=== PATIENT | female | born 1985 | race Caucasian/White ===

== ENCOUNTER → 2021-02-22 08:34 | Outpatient (BNVA) | payer OTHER, SELFPAY | PROVIDERS: PCP Family Medicine ==

== ENCOUNTER 2021-03-02 01:33 | Emergency (ER) | payer OTHER, SELFPAY ==
[2021-03-02 01:49] VITALS: BP 114/64; PULSE 98; RESP 18; TEMP 36.8; O2SAT 100; BMI 20.5
--- NOTE | 2021-03-02 02:51 | ED.GENADULT ---
HPI - General Adult General Chief complaint: Skin/Abscess/Foreign Body Stated complaint: Forehead lac Time Seen by Provider: 03/02/21 02:49 Source: patient Mode of arrival: ambulatory Limitations: no limitations History of Present Illness HPI narrative: 35-year-old female history of extensive acne on the face, started with a pimple on the face over her nose in between her eyes patient started picking at the area causing the spread of the infection on the face and the right upper eyelid, no fluctuation, no double vision, no pain with movement of the eye. No fever, no chills. Related Data Home Medications Medication Instructions Recorded Confirmed oxybutynin chloride 5 mg tablet 5 mg PO DAILY 02/22/21 Previous Rx's Medication Instructions Recorded doxycycline hyclate 100 mg capsule 100 mg PO BID #14 cap 03/02/21 Allergies Allergy/AdvReac Type Severity Reaction Status Date / Time No Known Allergies Allergy Verified 02/22/21 08:39 [No Known Allergies*] N.K.D.A. Allergy Unknown Unknown Uncoded 02/22/21 08:39 Review of Systems Review of Systems: All other systems are reviewed and are negative Constitutional: Reports as per HPI and Reports no additional constitutional complaints Eyes: Reports as per HPI and Reports no additional eye complaints Reports system reviewed and no additional complaints, except as documented Cardiovascular: Reports as per HPI and Reports no additional cardiovascular complaints Respiratory: Reports as per HPI and Reports no additional respiratory complaints Gastrointestinal: Reports as per HPI and Reports no additional gastrointestinal complaints Genitourinary: Reports no additional female genitourinary complaints Musculoskeletal: Reports no additional musculoskeletal complaints Skin/Breast: Reports system reviewed and no additional complaints, except as docu Psychiatric: Reports no additional psychiatric complaints Endocrine: Reports no additional endocrine complaints Hematologic/Lymphatic: Reports no additional hematologic/lymphatic complaints Allergic/Immunologic: Reports no additional allergic/immunologic complaints Reports system reviewed and no additional complaints, except as documented and Reports Abnormal speech present [facility] Past Medical History Medical History Acute cystitis without hematuria Diverticulitis H/O urinary frequency Hirsutism Interstitial cystitis Pancreatic cyst Surgical History History of surgery Social History Social History Advance Directives: No Advance Directives Information Provided: No Physical Exam Vital Signs: Vital Signs: Last Vital Signs Temp 98.3 F 03/02/21 01:49 Pulse 98 03/02/21 01:49 Resp 18 03/02/21 01:49 BP 114/64 03/02/21 01:49 Pulse Ox 100 03/02/21 01:49 Body Mass Index 20.5 vital signs have been reviewed as appeared to be correct. Blood pressure normal. Heart rate normal. Respiration rate normal. Temperature normal. Oxygen saturation normal. Appearance: Alert. Oriented X3. No acute distress. Head: Normal external exam. Normocephalic. Atraumatic. No Pastor signs noted. No raccoon eyes noted . Face: Area 3 x 4 cm of redness, hotness, tenderness at the bridge of the nose affecting the right upper eyelid, no fluctuation, no extraocular muscle tenderness with eye movement. Eyes: PERRLA. EOMI. Conjunctiva and sclera normal. Eyelids normal. ENT: TM's Normal. Pharynx normal. Uvula midline. Moist mucous membranes. No trismus noted. No drooling noted. No muffled voice noted. Neck: Normal inspection. Neck supple. FROM. No adenopathy. Thyroid Normal. No meningeal signs. No neck mass noted. CVS: Normal heart rate and rhythm. Heart sound normal. No murmurs noted. Pulses normal throughout. Respiratory: No respiratory distress. Painless inspiration. Breath sounds normal. No wheezes/rales/rhonchi noted. Chest nontender. No accessory muscle usage noted or decreased air movement noted. Abdomen: Soft and nontender. Bowel sounds normal in all 4 quadrants. No distention noted. No organomegaly noted. No visible injury noted. Back: No CVA tenderness. Full range of motion noted. Skin: Skin warm and dry. Normal skin color. Normal skin turgor. No rashes/lesions/lacerations noted. Extremities: No lower extremity edema. Extremities exhibit normal range of motion. Extremities nontender. Neuro: Oriented X 3. Cranial nerve exam: II-XII are grossly intact No motor deficit. No sensory deficit. Reflexes normal. Course Course Course Narrative: Assessment and plan. 35-year-old female came in with facial cellulitis after picking on a pimple on the face. affecting right upper eyelid, physical exam consistent with superficial infection with no periorbital cellulitis. Will start the patient on doxycycline. Discharge Plan Discharge Clinical Impression: Cellulitis Qualifiers: Site of cellulitis: face Qualified Code(s): L03.211 - Cellulitis of face Patient Disposition: Home, Self-Care Instructions: Cellulitis (ED) Additional Instructions: return to the emergency department in 2 days for wound check. Prescriptions: New doxycycline hyclate 100 mg capsule 100 mg PO BID Qty: 14 RF: 0 Referrals: Kelly Caraballo PA [Primary Care Provider] - 2 days
== END 2021-03-02 03:11 | disposition home or self-care (01) ==
PROVIDERS: Emergency Provider Emergency Medicine; PCP Physician Assistant
DX: L03.211 Cellulitis of face (principal)
CPT/HCPCS: 99283

== ENCOUNTER → 2022-04-14 14:09 | Outpatient (BNVA) | payer OTHER, SELFPAY | PROVIDERS: PCP Physician Assistant; Visit Provider Urology | DX: N30.10 Interstitial cystitis (chronic) without hematuria (principal) ==

== ENCOUNTER 2023-05-01 15:20 | Outpatient (AMB) | payer OTHER, SELFPAY ==
--- NOTE | 2023-05-01 15:26 | A.OFFVIS_ITS ---
Intake Intake Visit Reasons: 1yr follow up Intake Note: Patient presents today for her annual follow up Cystitis: Medications: none Blood thinners: none PVR : 50 Patient stated she wakes up about 5 times at night to urinate,and also said she is avoiding food that irritates the bladder. , Speech Language Therapist Required: No Accompanied by: Self / Same As Patient Allergies No Known Allergies Allergy (Unverified 05/01/23 15:27) N.K.D.A. Allergy (Unknown, Uncoded 05/01/23 15:27) Unknown Medication List - Last Reconciled 05/01/23 by Soraida Shine MD doxycycline hyclate 100 mg PO BID norgestrel-ethinyl estradiol 0.3-30 mg-mcg (Low-Ogestrel (28)) 1 tab PO DAILY oxybutynin chloride 5 mg PO BEDTIME HPI HPI Comments History of Present Illness Details Caio is a 38-year-old female who is followed by urology for diagnosis of interstitial cystitis. She was on elmiron in the past, stopped 2018 when she got She was doing well off elmiron - but is having increased urgency especially at night. I have reviewed IC diet. I will try an anticholinergic at bedtime. Evaluation today: Urinalysis leukocytes trace, blood negative 05/01/23--Plan - IC I have reviewed IC diet and given her a pamphlet Cont IC diet oxybutynin 5 mg at bedtime fu 3-4 months [facility] Medical History Interstitial cystitis Hirsutism Acute cystitis without hematuria H/O urinary frequency Pancreatic cyst Diverticulitis Surgical History History of surgery Review of Systems Const All systems reviewed & are unremarkable except as noted in HPI and below Reports no additional complaints Eyes Reports no additional complaints ENT Reports no additional complaints Card Denies dyspnea Resp Denies cough and Denies dyspnea GI Reports no additional complaints Reports no additional complaints Musc Reports no additional complaints Skin/Breast Denies rash and Denies unusual bruising Neuro Reports no additional complaints Psych Reports no additional complaints Endo Reports no additional complaints Dk/Lymph Reports no additional complaints Aller/Immun Reports no additional complaints Office Procedures Post Void Residual Post Residual Void Post Void Residual (PVR): 50 [id number]-[id number] Void Residual by ultrasound Results AMB Urinalysis, Automated UA Leukoctes 15 Maliha/uL Last Edit by [facility] on 05/01/23 15:49 UA Nitrite Negative Last Edit by [facility], [facility] on 05/01/23 15: 49 UA Urobilinogen 0.2 mg/dL Last Edit by [facility], [facility] on 4 15:49 UA Protein 30 mg/dL Last Edit by [facility], [facility] on 05/01/23 15:4 9 UA pH 6.5 Last Edit by [facility], [facility] on 05/01/23 15:49 UA Blood 0 Albino/uL Last Edit by [facility], [facility] on 05/01/23 15:49 UA Specific [place] 1.025 Last Edit by [facility], [facility] on 15:49 UA Ketone Last Edit by [facility], [facility] on 05/01/23 15:49 UA Bilirubin 0 mg/dL Last Edit by [facility], [facility] on 05/01/23 15: 49 UA Glucose 0 mg/dL Last Edit by [facility] on 05/01/23 15:49 Results Reviewed Results Reviewed: Laboratory Last Values Urine pH (Auto) 6.5 05/01/23 15:47 Specific [place] (Auto) 1.025 05/01/23 15:47 Urine Protein (Auto) 30 mg/dL 05/01/23 15:47 Glucose (UA)(Auto) 0 mg/dL 05/01/23 15:47 Urine Blood (Auto) 0 Albino/uL 05/01/23 15:47 Urine Nitrite (Auto) Negative 05/01/23 15:47 Urine Bilirubin (Auto) 0 mg/dL 05/01/23 15:47 Urine Urobilinogen (Auto) 0.2 mg/dL 05/01/23 15:47 Leukocyte Esterase (Auto) 15 Maliha/uL 05/01/23 15:47 Assessment & Plan Assessment & Plan (1) Interstitial cystitis: Code(s): N30.10 - Interstitial cystitis (chronic) without hematuria (2) Nocturia: Code(s): R35.1 - Nocturia Plan IC I have reviewed IC diet and given her a pamphlet Cont IC diet oxybutynin 5 mg at bedtime fu 3-4 months Orders: Orders AMB Urinalysis Automated 05/01/23 R33.9 - Retention of urine, unspecified AMB Post Void Residual by ultrasound 05/01/23 R33.9 - Retention of urine, unspecified Urine Culture 05/01/23 N39.0 - Urinary tract infection, site not specified, N30.10 - Interstitial cystitis (chronic) without hematuria Medications: New oxybutynin chloride take with food 5 mg PO BEDTIME 90 tabs 2RF Coding Level of Care Code Est Pt Level 4 (85641) Diagnoses Interstitial cystitis N30.10 Nocturia R35.1 CPT Codes Post Residual Void - PVR CPT Code: 08133-Rzfj Void Residual by ultrasound ([id number])
== END 2023-05-01 16:08 | disposition home or self-care (01) ==
LOC: HO.HUSH 15:20
PROVIDERS: PCP Physician Assistant; Visit Provider Urology
DX: N30.10 Interstitial cystitis (chronic) without hematuria (principal); R35.1 Nocturia
CPT/HCPCS: 99214

== ENCOUNTER 2023-05-01 15:20 | Outpatient (REF) | payer OTHER, SELFPAY | END 2023-05-01 15:21 | disposition home or self-care (01) | LOC: HO.LAB 15:20 | PROVIDERS: PCP Physician Assistant; Visit Provider Urology | DX: R33.9 Retention of urine, unspecified (principal); N30.10 Interstitial cystitis (chronic) without hematuria; R35.1 Nocturia | CPT/HCPCS: 51798; 81003; 87086 ==

== ENCOUNTER 2024-07-22 15:09 | Outpatient (AMB) | payer OTHER, SELFPAY ==
--- NOTE | 2024-07-22 15:15 | A.OFFVIS_ITS ---
Intake Visit Reasons: 1yr Followup Intake Note: Patient presents today for her annual follow up on: Interstitial Cystitis Medications: none Blood thinners: none PVR : 0ml's Caustic Pump Operator Required: No Accompanied by: Self / Same As Patient Allergies No Known Allergies Allergy (Unverified 07/22/24 16:12) N.K.D.A. Allergy (Unknown, Uncoded 07/22/24 16:12) Unknown Medication List - Last Reconciled 07/22/24 by JORGE LassiterP- norgestrel-ethinyl estradiol 0.3-30 mg-mcg (Low-Ogestrel (28)) 1 tab PO DAILY HPI Comments Details: Caio is a very pleasant 39-year-old female patient of . She has a past medical history of pancreatic cyst, diverticulitis, and interstitial cystitis. She presents to the office today for follow-up of her interstitial cystitis. In discussion with the patient today she reports to be doing and feeling well. She does report noting episodes of urinary urgency and frequency as well as nocturia however feels she is managing these symptoms well independently. She discusses that although recommendations for initiation of oxybutynin was prescribed during last office visit she did not feel symptoms were on manageable independently and therefore never started the medication. In office urinalysis results reviewed with the patient today. She continues to follow an interstitial cystitis diet and is aware of her triggers. She otherwise denies hematuria, dysuria, foul smelling urine, changes to urinary stream, flank pain, fever, and or chills. She is happy with her current voiding parameters. We discussed at length potential causes of interstitial cystitis as well as further treatment options and risks and benefits of these treatment options. She otherwise offers no other issues or concerns at this time. [facility] Medical History Interstitial cystitis Hirsutism Acute cystitis without hematuria H/O urinary frequency Pancreatic cyst Diverticulitis Surgical History History of surgery Review of Systems Const All systems reviewed & are unremarkable except as noted in HPI and below Physical Exam Const General: cooperative, healthy appearing, comfortable, no acute distress, well developed, alert and awake Orientation/consciousness: patient oriented x3 Limitations: no limitations HEENT Head: Yes normal to inspection, Yes normocephalic and Yes atraumatic Ears: hearing grossly normal bilaterally Eyes General: appearance normal, both eyes and all related structures Neck Neck: Yes normal visual inspection and Yes trachea midline Chest Chest palpation & inspection: normal inspection of the chest Resp Effort & Inspection: normal respiratory effort and able to speak in complete sentences Cardio Rate: regular rate GI Inspection: Yes normal to inspection General: Yes no CVA tenderness Back/Spine/Pelvis Back: no CVA tenderness Skin General skin exam: no rashes or lesions noted Neuro General: patient oriented x3 Extrem General: Yes normal to inspection Psych Appearance: grossly normal and well kempt Mental Status: mental status grossly normal Speech and movement: Normal speech and movement present and Clear speech present Affect: normal affect Attitude: cooperative Thought process: Normal thought process present Thought content: Normal thought content present Insight: Fair insight present (Psych) Judgement: Fair judgement present (Psych) Office Procedures Post Void Residual Post Residual Void Post Void Residual (PVR): 0 19308-Pipj Void Residual by ultrasound Results AMB Urinalysis, Automated UA Leukoctes 0 Maliha/uL Last Edit by Flypeeps Harika on 07/22/24 16:34 UA Nitrite Last Edit by Alberto Shabazz on 07/22/24 16:34 UA Urobilinogen 0.2 mg/dL Last Edit by Mahindra REVAcharito Shabazz on 07/22/24 16:34 UA Protein 30 mg/dL Last Edit by Mahindra REVAcharito Shabazz on 07/22/24 16:34 UA pH 6.0 Last Edit by АлександрMeet My Friendscharito Shabazz on 07/22/24 16:34 UA Blood 0 Albino/uL Last Edit by Mahindra REVAcharito Shabazz on 07/22/24 16:34 UA Specific [place] 1.025 Last Edit by Flypeeps Harika on 07/22/24 16:34 UA Ketone Positive Last Edit by Mahindra REVAcharito Shabazz on 07/22/24 16:34 UA Bilirubin 0 mg/dL Last Edit by Alberto Shabazz on 07/22/24 16:34 UA Glucose 0 mg/dL Last Edit by Alberto Shabazz on 07/22/24 16:34 Results Reviewed Results Reviewed: Laboratory Last Values Urine pH (Auto) 6.0 07/22/24 16:33 Specific [place] (Auto) 1.025 07/22/24 16:33 Urine Protein (Auto) 30 mg/dL 07/22/24 16:33 Glucose (UA)(Auto) 0 mg/dL 07/22/24 16:33 Urine Ketones (Auto) Positive 07/22/24 16:33 Urine Blood (Auto) 0 Albino/uL 07/22/24 16:33 Urine Bilirubin (Auto) 0 mg/dL 07/22/24 16:33 Urine Urobilinogen (Auto) 0.2 mg/dL 07/22/24 16:33 Leukocyte Esterase (Auto) 0 Maliha/uL 07/22/24 16:33 Assessment & Plan Assessment & Plan (1) Nocturia: Code(s): R35.1 - Nocturia Category: Medical (2) Interstitial cystitis: Code(s): N30.10 - Interstitial cystitis (chronic) without hematuria Category: Medical Plan In office urinalysis results reviewed with the patient today; as noted above. PVR 50 mL Patient currently denies any bothersome urinary issues or concerns. She reports be happy with current voiding parameters. Will continue with surveillance monitoring. We discussed potential causes of interstitial cystitis as well as further treatment options and risks and benefits of these treatment options. Continue to follow IC diet. Follow-up in 1 year with PVR; or sooner with any issues, concerns, and or quest ions. Orders: Orders AMB Urinalysis Automated Today Z13.9 - Encounter for screening, unspecified AMB Post Void Residual by ultrasound Today N30.10 - Interstitial cystitis (chronic) without hematuria Medications: Discontinued doxycycline hyclate Discontinued Reason: Patient no longer taking 100 mg PO BID 14 caps 0RF oxybutynin chloride take with food Discontinued Reason: Patient no longer taking 5 mg PO BEDTIME 90 tabs 2RF Patient Instructions: The patient had an opportunity to ask questions regarding the treatment plan. All questions were answered. Physical exam, labs, and imaging were discussed and reviewed in detail. As well as risks, benefits, and discussion of treatment choices. No major barriers to understanding were identified. The patient expressed understanding and agreement with the above treatment plan. The patient was made aware they should contact our office by phone for worsening of their current condition, the appearance of new symptoms, or with any questions or concerns. Compliance is encouraged with any medications and follow up testing that is ordered. It is a privilege to be allowed the opportunity to participate in? your urological care.? Again, if you have any questions or concerns If you have any questions or concerns please do not hesitate to contact me. The office is [phone]. This note is constructed using voice recognition software. While every effort has been made to ensure accuracy stroke coordinator errors may have been included. Yours sincerely, TAHMINA Lassiter Coding Level of Care Code Est Pt Level 3 (76540) Complex EM visit Add On G2211 Diagnoses Nocturia R35.1 Interstitial cystitis N30.10 CPT Codes Post Residual Void - PVR CPT Code: 93243-Axgl Void Residual by ultrasound ([id number])
--- OUTSIDE RECORDS SUMMARY | 2024-07-22 17:42 | XMS_ITS | Data Portability ---
Author Organization [facility], [address] Address [address] [place] [address] Assessment Encounter Date Assessment Date Assessment LastModified by Organization Details LastModified Time 10/27/2017 10/27/2017 Patient presents for a cosmetic consult. I had done a scar revision of a round scar on her nasal dorsum several years agon and she now has another scar left to it which is the result of scratching a pimple . 6mm scar mid nasal dorsum. Dwp scar revision surgery Cost $400. [email or web address] Not available 10/31/2017 10:06:43 Plan of Treatment Reminders Order Date Submit Date Provider Last Modified By Organization Details Last Modified Time Details Appointments None record ed. Lab None record ed. Referral None record ed. Procedures None record ed. Surgeries None record ed. Imaging None record ed. Medication Orders None record ed. Patient TargetsNo targets recorded. Patient InstructionsNo instructions recorded. Reason for Referral None Reported. Medical Equipment None Reported. Vitals None Recorded Social History None recorded. Functional Status None recorded. Mental Status None recorded. Family History Nothing Reported. Medical History No medical history recorded. Gynecological HistoryNo gynecological history recorded. Obstetrics History GPAL:G 0 P 0 0 0 0 Past Encounters Encounter ID Performer Location Encounter Start Date Encounter Closed Date Diagnosis/Indication Diagnosis SNOMED-CT Code Diagnosis ICD10 Code Diagnosis Note [id number] MD [facility] Ramirez [address] [place] [address] 10/27/2017 09:51:29 10/27/2017 10:40:50 Optional surgery [id number] Z41.9 Health Concerns Section Related Observation LastModified by Organization Detai ls LastModified Time None Recorded Concern Status LastModified by Organization Details LastModified Time None Recorded Advance Directives Directive None Recorded Payers None recorded. Notes Date Note Type Note Provider Name and Address Organization Details Recorded Time 10/27/2017 text/html The patient presents for a cosmetic treatment. Alonzo Cool MD [address] [facility],[address], [place], [address], [facility] 10/31/2017 10:06:58 OBGyn Episode No OBEpisode recorded.
== END 2024-07-22 15:54 | disposition home or self-care (01) ==
LOC: HO.HUSH 15:09
PROVIDERS: PCP Physician Assistant; Visit Provider Nurse Practitioner Family
DX: R35.1 Nocturia (principal); N30.10 Interstitial cystitis (chronic) without hematuria; Z13.9 Encounter for screening, unspecified
CPT/HCPCS: 99213

== ENCOUNTER → 2024-07-22 15:09 | Outpatient (BNVA) | payer OTHER, SELFPAY | PROVIDERS: PCP Physician Assistant; Visit Provider Nurse Practitioner Family | DX: R35.1 Nocturia (principal); N30.10 Interstitial cystitis (chronic) without hematuria | CPT/HCPCS: 51798; 81003 ==

== ENCOUNTER 2024-08-12 15:11 | Outpatient (AMB) | payer OTHER, SELFPAY ==
[2024-08-12 15:15] VITALS: BP 130/78; PULSE 72; O2SAT 99; BMI 21.5
--- NOTE | 2024-08-12 15:15 | MHC.OFFVIS ---
Vital Signs 08/12/24 15:15 Height 5 ft 4 in Weight 125 lb BMI 21.5 BP 130/78 Blood Pressure Location Rt brachial Position Sitting Pulse 72 Pulse Source Pulse Oximeter Pulse Oximetry (%) 99 Oxygen Delivery Method Room Air Intake Visit Reasons: Nausea Intake Note: NEW PATIENT for initial eval of nausea. Prior hx of colo/egd? N Chief Complaint; Pt reports her sx are well managed currently. Previous hx of pancreatic cyst and diverticulitis in 2018 when she saw [facility]. Pt has not seen GI since and has been managing with diet and lifestyle changes. Pt has occasional episodes of GI upset and abd pain but is typically OK without treatment. Pt reports she is overdue for 5 year recall for pancreatic cyst check (MRI) per July previously. PCP also recommended this. Design Drafter Required: No Accompanied by: Self / Same As Patient Allergies No Known Allergies Allergy (Unverified 08/12/24 15:20) HPI HPI Nausea: Details: 39-year-old female with past medical history of interstitial cystitis, pancreatic cyst, diverticulitis is here to they for initial consultation. Diagnosed with diverticulitis in 2018. Patient was hospitalized for 4 days. During that time patient had CT scan that found pancreatic cyst. Patient has since then been following up with Bella Harris last visit was in 2019. Patient was diagnosed couple months later with interstitial cystitis seen by Urology initially by Dr. Stephens. Now patient is following up with [facility] urology. Last appointment was last month. Patient reports that she has been busy in the past few years and did not pay attention that she has to follow-up with MRI to check the status of the pancreatic cyst. Patient gave to her son few years ago and has been very busy taking care of him. Patient denies any abdominal pain or discomfort. She is currently following strict diet to prevent symptoms. She had been diagnosed with interstitial cystitis and have been pretty consistent with her diet. Patient denies any abdominal pain or discomfort. Denies any flare-ups. Patient does report occasional nausea but no vomiting. Patient is not taking any PPI. Denies any dyspepsia, dysphagia or odynophagia. Denies any melena, hematochezia, unintentional weight loss or ribbon like stools. [facility] Medical History Interstitial cystitis Hirsutism Acute cystitis without hematuria H/O urinary frequency Pancreatic cyst Diverticulitis Surgical History (Reviewed 08/12/24 @ 15:20 by Kapil Penn [facility]) H/O section History of surgery Review of Systems Const Denies weight gain and Denies weight loss ENT Reports no additional complaints, Denies dysphagia and Denies odynophagia Card Reports no additional complaints Resp Reports no additional complaints GI Denies abdominal pain, Denies belching, Denies melena, Denies bloating, Denies change in bowel habits, Denies dysphagia, Denies excessive flatus, Denies dyspepsia, Denies heartburn, Denies diarrhea, Denies loose stools, Denies nausea, Denies odynophagia and Denies vomiting Reports no additional complaints Musc Reports no additional complaints Neuro Reports no additional complaints Psych Reports no additional complaints Endo Reports no additional complaints Assessment & Plan Assessment & Plan (1) Pancreatic cyst: Code(s): K86.2 - Cyst of pancreas Category: Medical (2) Nausea: Code(s): R11.0 - Nausea Plan Patient found to have pancreatic cyst way in 2019. Was told to repeat study, unable to follow-up due to caring for her child. Patient denies any abdominal pain or discomfort, reports occasional nausea. No family history of pancreatic cancer. I do not see any records at [facility] for CT scan or any admissions. We will call patient's PCP and try to get records. Patient does admit that she was under care at [facility]. Patient will follow-up with us in 1 year. We will call her with the results. Patient will call us if she will have any GI concerning symptoms. She is agreeable to this plan and verbalizes understanding of instructions. She was given the opportunity to ask questions and all questions answered. Thank you for allowing me to participate in her care Orders: Orders MR abdomen wo/w con Today K86.2 - Cyst of pancreas, R11.0 - Nausea Coding Level of Care Code New Pt Level 3 (68961) Diagnoses Pancreatic cyst K86.2 Nausea R11.0 Time Spent (min) 40 Comment 30 minutes spent with patient and additional 10 minutes spent reviewing her records
== END 2024-08-12 16:02 | disposition home or self-care (01) ==
LOC: HO.HGI 15:11
PROVIDERS: PCP Physician Assistant; Visit Provider Nurse Practitioner Family
DX: K86.2 Cyst of pancreas (principal); R11.0 Nausea
CPT/HCPCS: 99203

== ENCOUNTER → 2024-08-21 15:56 | Outpatient (BNV) | payer OTHER, SELFPAY | PROVIDERS: Visit Provider Radiology Diagnostic Radiology | DX: K86.2 Cyst of pancreas (principal) | CPT/HCPCS: 74183 ==

== ENCOUNTER 2024-08-21 15:57 | Outpatient (REF) | payer OTHER, SELFPAY ==
--- NOTE | ~2024-08-21 | MR_ITS ---
EXAMINATION: MR ABDOMEN WITHOUT THEN WITH IV CONTRAST HISTORY: K86.2 - Cyst of pancreas COMPARISON: Comparison is made with the prior examination dated 04/11/2018. TECHNIQUE: Axial in and out of phase T1-weighted gradient echo, axial diffusion weighted, and axial and coronal HASTE T2 with fat saturation images were obtained through the abdomen. 3D MRCP Reconstructed and thin and thick slab images of the biliary tree were obtained. Subsequently, fat suppressed axial and coronal T1-weighted images were obtained after the intravenous administration of 6 mL Gadavist. FINDINGS: Liver: There is no loss of signal intensity in the liver on opposed phase imaging to suggest steatosis. There is no enhancing liver mass. The hepatic and portal veins are patent. There is no intra- or extrahepatic biliary dilatation. Gallbladder: The gallbladder is mildly contracted. No gallstones are identified. Spleen: The spleen is unremarkable. Pancreas: The previously seen multiseptated cystic mass in the pancreatic body is larger in size measuring 2.8 x 2.0 x 2.7 cm (previously 1.6 x 0.8 x 1.6 cm). There is a triangular-shaped T2 hypointense focus between the septations which may represent a calcification. There is no definite internal or septal enhancement. The pancreatic duct is normal in caliber. Adrenals: The adrenal glands are unremarkable. Kidneys: The kidneys are unremarkable. There is no hydronephrosis. Lymph nodes: There is no retroperitoneal lymphadenopathy in the upper abdomen. Fluid: There is no ascites in the upper abdomen. Visualized bowel: The visualized bowels loops are unremarkable in appearance. Visualized bones: The visualized bones demonstrate normal marrow signal intensity. MR/MR abdomen wo/w con IMPRESSION: Interval enlargement of the previously seen multiseptated cystic mass of the pancreatic body as described above. A T2 hypointense focus between the septations may represent calcification. There is no associated contrast enhancement. Differential diagnostic considerations include intraductal papillary mucinous neoplasm (IPMN) and mucinous cystic neoplasm. Endoscopic ultrasound with fine-needle aspiration should be strongly considered. A report was sent to Diana Almanzar NP by secure text message on 08/22/2024 at 7:52 AM. Electronically signed by: Richie Salmeron MD 08/22/2024 07:53 AM EDT RP
--- OUTSIDE RECORDS SUMMARY | 2024-08-21 16:02 | XMS_ITS | Data Portability ---
Author Organization [facility], [address] Address [address] [place] [address] Assessment Encounter Date Assessment Date Assessment LastModified [...] SNOMED-CT Code Diagnosis ICD10 Code Diagnosis Note [id number] MD Fallon Ramirez [address] [place] [address] 10/27/2017 09:51:29 10/27/2017 10:40:50 Optional surgery [id number] Z41.9 Health Concerns Section Related Observation LastModified by Organization Detai ls LastModified Time None Recorded Concern Status LastModified by Organization Details LastModified Time None Recorded Advance Directives Directive None Recorded Payers None recorded. Notes Date Note Type Note Provider Name and Address Organization Details Recorded Time 10/27/2017 text/html The patient presents for a cosmetic treatment. Alonzo Cool MD [address] [facility],[address], [place], [address], [facility] 10/31/2017 10:06:58 OBGyn Episode No OBEpisode recorded.
[2024-08-21] MEDS: gadobutroL 7.5 ML VIAL IVPUSH (16:53)
== END 2024-08-21 15:58 | disposition home or self-care (01) ==
LOC: HO.MRI 15:57
PROVIDERS: Visit Provider Nurse Practitioner Family
DX: K86.2 Cyst of pancreas (principal); R11.0 Nausea
CPT/HCPCS: 74183; A9585